=== PATIENT | male | born 1960 | race African-American/Black ===

== ENCOUNTER 2017-05-20 03:23 | Emergency (ER) | payer MEDICAID ==
[~2017-05-20] VITALS: Ht 162.6 cm; Wt 70.0 kg
[2017-05-20 07:43] VITALS: BP 158/87
== END 2017-05-20 08:58 | disposition home or self-care (01) ==
LOC: ER 08:24
DX: K04.7 Periapical abscess without sinus (principal); K02.9 Dental caries, unspecified; F17.200 Nicotine dependence, unspecified, uncomplicated; F12.10 Cannabis abuse, uncomplicated; I10 Essential (primary) hypertension; Z88.1 Allergy status to other antibiotic agents; Z88.0 Allergy status to penicillin; Z98.890 Other specified postprocedural states
CPT/HCPCS: 99283

== ENCOUNTER 2024-11-24 17:42 | Emergency (ER) | payer MEDICAID ==
[~2024-11-24] VITALS: Ht 160 cm; Wt 56.8 kg
[2024-11-24 18:39] VITALS: O2SAT 99
[2024-11-24] MEDS ORDERED: AMLODIPINE 10MG TABLET PO ONE (19:30)
[2024-11-24] MEDS: AMLODIPINE 5MG TABLET PO NR (20:16)
[2024-11-24 21:20] LABS: BASOPHILS % 0.5 % (0.0-2.0); EOSINOPHILS % 0.4 % (0.0-5.0); HEMATOCRIT. 39.5 % (42.0-52.0); LYMPHOCYTES % 17.1 % (20.0-50.0); MEAN CORPUSCULAR HEMOGLOBIN 27.8 pg (28.0-32.0); MEAN CORPUSCULAR HGB CONC 32.9 g/dL (31.0-37.0); MEAN CORPUSCULAR VOLUME 84.4 fL (80.0-94.0); MEAN PLATELET VOLUME 7.4 fl (7.4-10.4); MONOCYTES % 8.5 % (2.0-8.0); NEUTROPHILS % 73.5 % (40.0-76.0); PLATELET 336 x1000/uL (130-400); RED BLOOD CELL COUNT 4.67 mill/uL (4.7-6.1); WHITE BLOOD COUNT 11.9 x1000/uL (4.5-11.0)
[2024-11-24] MEDS: LIDOCAINE HCL/PF 1% 10 MG/ML 5ML VIAL INFIL ONE (21:23)
[2024-11-24] MEDS: BACITRACIN ZINC OINT UDPKT TOP ONE (21:23)
[2024-11-24 21:32] LABS: CARBON DIOXIDE 24 mEq/L (21-32); CHLORIDE 105 mEq/L (98-107); POTASSIUM 3.7 mEq/L (3.5-5.1); SODIUM 139 mEq/L (136-145)
[2024-11-24 21:33] LABS: CALCIUM 9.3 mg/dL (8.7-10.4)
[2024-11-24 21:38] LABS: GLUCOSE 93 mg/dL (70-105); UREA NITROGEN BLOOD 11 mg/dL (9-23)
[2024-11-24] MEDS: HYDRALAZINE HCL 25MG TABLET PO ONE (23:03)
[2024-11-24] MEDS: TETANUS AND DIPHTHERIA TOX/PF 0.5ML SYR (ADULT) IM ONE (23:35)
[2024-11-24 23:58] VITALS: BP 233/117; PULSE 80; RESP 18; TEMP 36.8; O2SAT 99
[2024-11-25] MEDS ORDERED: AMLO-337 MT (00:13)
== END 2024-11-25 00:24 | disposition home or self-care (01) ==
LOC: ER 17:42
DX: S01.81XA Laceration without foreign body of other part of head, initial encounter (principal); I10 Essential (primary) hypertension; Z98.890 Other specified postprocedural states; Z88.1 Allergy status to other antibiotic agents; Z88.0 Allergy status to penicillin; W45.8XXA Other foreign body or object entering through skin, initial encounter; Y93.89 Activity, other specified; Y92.89 Other specified places as the place of occurrence of the external cause; Y99.8 Other external cause status
CPT/HCPCS: 80048; 85025; 36415; 70450; 93005; 12014; 99285; J2003; Z7610 ×2; 90714

== ENCOUNTER 2024-11-26 19:18 | Emergency (ER) | payer MEDICAID ==
[~2024-11-26] VITALS: Ht 160 cm; Wt 57.0 kg
[~2024-11-26 19:18] MED LIST: AMLO-337 MT
[2024-11-26 19:21] VITALS: O2SAT 98
[2024-11-26 19:34] VITALS: BP 133/77; PULSE 90; RESP 16; TEMP 36.9; O2SAT 100
== END 2024-11-26 19:58 | disposition home or self-care (01) ==
LOC: ER 19:18
DX: S01.81XD Laceration without foreign body of other part of head, subsequent encounter (principal); I10 Essential (primary) hypertension; F12.90 Cannabis use, unspecified, uncomplicated; Z79.899 Other long term (current) drug therapy; Z98.890 Other specified postprocedural states; Z88.1 Allergy status to other antibiotic agents; Z88.0 Allergy status to penicillin; X58.XXXD Exposure to other specified factors, subsequent encounter
CPT/HCPCS: 99281